=== PATIENT | female | born 1955 | race Caucasian/White ===

== ENCOUNTER → 2019-01-30 | Outpatient (CLI) | payer OTHER ==
--- NOTE | 2019-01-30 16:44 | Diagnostic Imaging Report ---
EXAMINATION: CT scan of the chest without contrast. TECHNIQUE: Spiral CT images of the chest were performed from the lung apices to the level of the adrenal glands without IV or oral contrast material. Coronal and sagittal reformatted images were obtained. Technique modification was utilized to maintain the lowest dose possible to the patient. DLP: 578.17 mGy-cm COMPARISON: None. CLINICAL HISTORY:Chronic cough DISCUSSION: LINES/TUBES: None. LUNGS AND AIRWAYS: The lungs are clear. No pulmonary nodules, masses or consolidation. The airways are normal, without endobronchial lesions. Nodular oblong opacity in the lingula measures 6.7 mm and has the appearance of scarring but in a patient that is high risk exposed to secondhand smoke follow-up in 6 months to maintain stability would be of benefit. PLEURA: No pneumothorax or pleural effusions. HEART AND MEDIASTINUM: The thyroid gland is normal. The heart and pericardium are within normal limits. LYMPH NODES: There is no mediastinal, hilar or axillary lymphadenopathy. ABDOMEN: Limited contrast-enhanced views of the upper abdomen show no abnormality within the visualized liver, spleen, pancreas or kidneys. The adrenal glands are normal. BONES AND SOFT TISSUES: No acute bony abnormalities. IMPRESSION: 1. [place] nodular opacity in the lingula likely is secondary to scarring 2. Interim follow-up study in 6 months is recommended to maintain stability. Signed by: Dr. Kain Ferrara DO on 01/30/2019 4:41 PM
== END ==
LOC: CT 15:41
PROVIDERS: ATTEND Internal Medicine Critical Care Medicine
DX: J31.2 Chronic pharyngitis (principal); K21.9 Gastro-esophageal reflux disease without esophagitis; G47.33 Obstructive sleep apnea (adult) (pediatric)
CPT/HCPCS: 71250

== ENCOUNTER → 2019-02-10 | Outpatient (CLI) | payer OTHER ==
--- NOTE | 2019-02-24 12:58 | Polysomnography ---
DATE OF STUDY: 02/10/2019 REFERRING PHYSICIAN: Matteo Puga MD STUDY: Diagnostic polysomnogram, type III monitoring system. HISTORY: The patient is a 63-year-old female with refractory cough and allergies. The patient has a past medical history of hypertension, allergies, hypothyroid disorder. CURRENT MEDICATIONS: Include amitriptyline, levothyroxine, lisinopril, Tussionex, allergy shots. BMI 34.5. [place] Sleepiness Scale score 7. The patient presents for a diagnostic polysomnogram, type 3 sleep study. FINDINGS: An 8-channel polysomnogram which excluded leg EMG was setup prior to the patient sleeping. Home sleep study recorded 443.5 minutes of total sleep time with sleep efficiency of 67.3%. Intermittent snoring was noted. A total of 40 hypopneas and 97 obstructive apneas were noted for an apnea-hypopnea index of 19.8 events per hour. The lowest oxygen saturation during this time was 79%. Of note, respiratory events seem clustered together periodically suggesting a probable REM related breathing disorder. INTERPRETATION: This was an abnormal polysomnogram, type 3 home sleep study due to the presence of: 1) Moderate obstructive sleep apnea. This is supported by oxygen desaturation, snoring, and increased apnea-hypopnea index. Multiple factors can be contributory such as obesity, thyroid disease, and structural obstructive abnormalities in the upper airway. An evaluation and management of these factors associated with sleep apnea would be beneficial. A consideration for auto CPAP could be made with usual settings of 4 - 20 cm water pressure, mask to fit, heated humidifier, and other supplies as indicated. Alternative modalities of treatment can be considered include oral appliances or surgical intervention in the appropriate clinical scenario. Matteo Puga MD [facility] Certified in Sleep Medicine GMN/MODL /[id number] MTDD
== END ==
LOC: SLEEP 18:57
PROVIDERS: ATTEND Internal Medicine Critical Care Medicine
DX: G47.33 Obstructive sleep apnea (adult) (pediatric) (principal)
CPT/HCPCS: 95806